=== PATIENT | female | born 1965 | race Caucasian/White ===

== ENCOUNTER 2016-10-14 21:16 | Emergency (ER) | payer OTHER ==
[~2016-10-14] VITALS: Ht 157.5 cm; Wt 62.0 kg
[2016-10-14 21:31] VITALS: BP 131/79; PULSE 91; RESP 16; TEMP 98.2; TEMP 99.3; O2SAT 96
[2016-10-14 22:08] LABS: AUTOMATED NEUTROPHIL # 5.3 TH/MM3 (1.8-7.7); BASOPHIL % 0.4 % (0.0-2.0); EOSINOPHIL # 0.1 TH/MM3 (0-0.4); EOSINOPHIL % 0.9 % (0.0-4.0); HEMATOCRIT 36.4 % (35.0-46.0); HEMO FLAGS DIFF FINAL; LYMPH % 20.7 % (9.0-44.0); LYMPHOCYTE # 1.5 TH/MM3 (1.0-4.8); MEAN CELL VOLUME 90.1 FL (80.0-100.0); MEAN CORPUSCULAR HEMOGLOBIN 30.6 PG (27.0-34.0); MEAN CORPUSCULAR HGB CONC 33.9 % (32.0-36.0); MONO % 5.5 % (0.0-8.0); NEUT % 72.5 % (16.0-70.0); PLATELET COUNT 228 TH/MM3 (150-450); RED BLOOD COUNT 4.04 MIL/MM3 (4.00-5.30); RED CELL DISTRIBUTION WIDTH 12.6 % (11.6-17.2); WHITE BLOOD COUNT 7.3 TH/MM3 (4.0-11.0)
--- NOTE | 2016-10-14 22:12 | PD ---
HPI Chief Complaint: Psychiatric Symptoms Time Seen by Provider: 21:21 Travel History International Travel<30 days: No Contact w/Intl Traveler<30days: No Traveled to known affect area: No History of Present Illness HPI Patient is Slovenian-speaking only and video translational service was used to obtain history and physical exam. This is a 51-year-old female who was brought in by PD under Jefferson act. According to the Jefferson act the patient has been complaining of depression lately which has caused her to become angry/agitated/violent towards her . The patient requested to speak with a psychiatrist. Patient admits to feeling depressed lately. She denies suicidal or homicidal ideation. She also states that she has been having pain in her right ear, her throat, and has a rash on her left chest wall. The symptoms of been going on for about a week. She states she has had fevers which were treated with ibuprofen. On her left anterior chest she has noticed a rash where she has been trying to keep the area clean, however states that there has been yellowish drainage. She denies alcohol use, tobacco use, or illicit drug use. [facility] Past Medical History Immunizations Current: Yes Tetanus Vaccination: Unknown Influenza Vaccination: No ?: Unknown Social History Alcohol Use: No Tobacco Use: No Substance Use: No Allergies-Medications (Allergen,Severity, Reaction): Coded Allergies: Penicillin (Verified Allergy, Severe, Anemia, 10/14/16) Reported Meds & Prescriptions Reported Meds & Active Scripts Active No Active Prescriptions or Reported Medications Review of Systems Except as stated in HPI: all other systems reviewed are Neg Physical Exam Narrative GENERAL: Well-developed, well-nourished, sitting comfortably on stretcher, no acute distress. SKIN: Focused skin assessment warm/dry. Left anterior chest wall with area of erythema with slight induration with a few pustules in the center. There is no fluctuance. No active drainage. Mild warmth. HEAD: Atraumatic. Normocephalic. EYES: Pupils equal and round. No scleral icterus. No injection or drainage. ENT: Mucous membranes pink and moist. Bilateral tympanic membranes and external auditory canals are normal. Pharynx is normal. NECK: Trachea midline. No JVD. CARDIOVASCULAR: Regular rate and rhythm. No murmur appreciated. RESPIRATORY: No accessory muscle use. Clear to auscultation. Breath sounds equal bilaterally. GASTROINTESTINAL: Abdomen soft, non-tender, nondistended. MUSCULOSKELETAL: No obvious deformities. No clubbing. No cyanosis. No edema. NEUROLOGICAL: Awake and alert. No obvious cranial nerve deficits. Motor grossly within normal limits. Normal speech. PSYCHIATRIC: Appropriate mood and affect; insight and judgment normal. Data Data Last Documented VS Vital Signs Date Time Temp Pulse Resp B/P Pulse Ox O2 Delivery O2 Flow Rate FiO2 10/14/16 21:31 99.3 91 16 131/79 96 Orders Complete Blood Count With Diff (10/14/16 21:25) Comprehensive Metabolic Panel (10/14/16 21:25) Psych Screen (10/14/16 21:25) Drug Screen, Random Urine (10/14/16 21:25) Alcohol (Ethanol) (10/14/16 21:25) Salicylates (Aspirin) (10/14/16 21:25) Tylenol (Acetaminophen) (10/14/16 21:25) Sulfamet-Trimeth Ds 800-160 Mg (Bactrim (10/14/16 22:15) Cephalexin (Keflex) (10/14/16 22:15) Diphenhydramine (Benadryl) (10/14/16 22:15) Labs Laboratory Tests Test 10/14/16 21:50 White Blood Count 7.3 TH/MM3 Red Blood Count 4.04 MIL/MM3 Hemoglobin 12.4 GM/DL Hematocrit 36.4 % Mean Corpuscular Volume 90.1 FL Mean Corpuscular Hemoglobin 30.6 PG Mean Corpuscular Hemoglobin 33.9 % Concent Red Cell Distribution Width 12.6 % Platelet Count 228 TH/MM3 Mean Platelet Volume 9.8 FL Neutrophils (%) (Auto) 72.5 % Lymphocytes (%) (Auto) 20.7 % Monocytes (%) (Auto) 5.5 % Eosinophils (%) (Auto) 0.9 % Basophils (%) (Auto) 0.4 % Neutrophils # (Auto) 5.3 TH/MM3 Lymphocytes # (Auto) 1.5 TH/MM3 Monocytes # (Auto) 0.4 TH/MM3 Eosinophils # (Auto) 0.1 TH/MM3 Basophils # (Auto) 0.0 TH/MM3 CBC Comment DIFF FINAL Differential Comment Sodium Level 144 MEQ/L Potassium Level 3.3 MEQ/L Chloride Level 110 MEQ/L Carbon Dioxide Level 25.2 MEQ/L Anion Gap 9 MEQ/L Blood Urea Nitrogen 14 MG/DL Creatinine 0.93 MG/DL Estimat Glomerular Filtration 63 ML/MIN Rate Random Glucose 94 MG/DL Calcium Level 9.3 MG/DL Total Bilirubin 0.4 MG/DL Aspartate Amino Transf 24 U/L (AST/SGOT) Alanine Aminotransferase 23 U/L (ALT/SGPT) Alkaline Phosphatase 89 U/L Total Protein 7.2 GM/DL Albumin 3.9 GM/DL Salicylates Level LESS THAN 1.7 MG/DL Urine Opiates Screen NEG Acetaminophen Level LESS THAN 2.0 MCG/ML Urine Barbiturates Screen NEG Urine Amphetamines Screen NEG Urine Benzodiazepines Screen NEG Urine Cocaine Screen NEG Urine Cannabinoids Screen NEG Ethyl Alcohol Level LESS THAN 3 MG/DL MDM Medical Decision Making Medical Screen Exam Complete: Yes Emergency Medical Condition: Yes Differential Diagnosis Cellulitis, viral illness, depression, anxiety, aggressive behavior Narrative Course Vital signs show heart rate 91, blood pressure 131/79, pulse ox 96% on room air , oral temp of 99.3F. CBC is unremarkable. CMP is remarkable for potassium 3.3, otherwise unremarkable. Tylenol, alcohol, and salicylate levels are negative. Urine drug screen is negative. Patient is very comfortable. She does have left anterior chest wall cellulitis. For this she'll be started on Bactrim and Keflex. She is medically cleared for psychiatric evaluation and disposition by them. Diagnosis Primary Impression: Aggressive behavior Additional Impression: Cellulitis of chest wall Scripts Cephalexin (Keflex)500 Mg [id number] Mg PO Q8H #30 CAP Ref 0 Prov:Shay Ag MD 10/14/16 Sulfamethoxazole-Trimethoprim (Bactrim DS)800-160 Mg Tab1 Tab PO BID #20 TAB Ref 0 Prov:Shay Ag MD 10/14/16 Shay Ag MD Oct 14, 2016 22:12
[2016-10-14] MEDS ORDERED: diphenhydrAMINE HCL 25 MG CAP PO ONE (22:15)
[2016-10-14] MEDS ORDERED: SULFAMETHOXAZOLE-TRIMETHOPRIM DS 800-160 MG TAB PO ONE (22:15)
[2016-10-14] MEDS ORDERED: CEPHALEXIN MONOHYDRATE 500 MG CAP PO ONE (22:15)
[2016-10-14 22:16] LABS: AMPHETAMINE, URINE NEG (NEG); BARBITURATES, URINE NEG (NEG); COCAINE, URINE NEG (NEG)
[2016-10-14 22:31] LABS: ANION GAP 9 MEQ/L (5-15); AST (GOT) 24 U/L (15-37); BICARBONATE 25.2 MEQ/L (21.0-32.0); BLOOD UREA NITROGEN 14 MG/DL (7-18); CHLORIDE 110 MEQ/L (98-107); GLOMERULAR FILTRATION RATE 63 ML/MIN (>89); POTASSIUM 3.3 MEQ/L (3.5-5.1); SODIUM (NA) 144 MEQ/L (136-145)
[2016-10-14 22:32] LABS: ALT (GPT) 23 U/L (10-53)
[2016-10-14 22:34] LABS: ACETAMINOPHEN LESS THAN 2.0 MCG/ML (10.0-30.0); ALKALINE PHOSPHATASE 89 U/L (45-117); TOTAL BILIRUBIN ADULT 0.4 MG/DL (0.2-1.0)
[2016-10-14] MEDS ORDERED: CEPH-460 PO (22:44)
[2016-10-14] MEDS ORDERED: BACT800T5 PO (22:44)
[2016-10-15 07:33] VITALS: BP 117/74; PULSE 74; RESP 15; O2SAT 100
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
== END 2016-10-15 13:52 | disposition home or self-care (01) ==
LOC: NEPD 21:16
DX: L03.313 Cellulitis of chest wall (principal); R46.89 Other symptoms and signs involving appearance and behavior
CPT/HCPCS: 80053; 80307; 85025; 99284